=== PATIENT | male | born 1995 | race Caucasian/White ===

== ENCOUNTER 2025-01-23 18:00 | Emergency (ER) | payer OTHER, SELFPAY ==
--- NOTE | ~2025-01-23 | XR_ITS ---
CLINICAL HISTORY: chest pain 2 view chest x-ray Comparison: None Findings: Mild left lower lobe atelectasis. No significant pleural effusion or pneumothorax. Normal size heart. No acute fracture. IMPRESSION: Mild left lower lobe atelectasis. This document has been electronically signed by: Bhavik Ortiz MD on 01/23/2025 23:47:12
--- NOTE | 2025-01-23 18:01 | ECG_ITS ---
Test Reason : CHEST PAIN Blood Pressure : */* mmHG Vent. Rate : 95 BPM Atrial Rate : 95 BPM P-R Int : 144 ms QRS Dur : 92 ms QT Int : 342 ms P-R-T Axes : 43 36 11 degrees QTcB Int : 429 ms Normal sinus rhythm with sinus arrhythmia Normal ECG No previous ECGs available Referred By: Generic ED Physician Electronically Signed By: José Booker
[2025-01-23 18:18] VITALS: BP 156/84; PULSE 91; RESP 18; TEMP 37.3; O2SAT 99; BMI 31.5
[2025-01-23 18:35] LABS: MANUAL DIFF FLAG NO
[2025-01-23 18:36] LABS: Basophils Absolute Auto 0.1 X10*3/uL (0.0-0.2); Basophils Percent Auto 0.5 % (0-2); Eosinophils Absolute Auto 0.1 X10*3/uL (0.0-0.4); Eosinophils Percent Auto 0.6 % (0-4); Hematocrit 41.4 % (42.0-52.0); Hemoglobin 14.8 g/dl (14.0-18.0); Imm Gran Abs Auto 0.03 X10*3/uL (0.00-0.03); Imm Gran Pct Auto 0.3 % (0.0-0.4); Lymphocytes Absolute Auto 2.1 X10*3/uL (1.2-4.9); Lymphocytes Percent Auto 21.2 % (20-40); Mean Corpuscular HGB Conc 35.7 g/dl (31.0-36.0); Mean Corpuscular Volume 81.2 fL (80.0-98.0); Mean Platelet Volume 10.3 fL (9.4-12.4); Monocytes Absolute Auto 0.7 X10*3/uL (0.1-1.2); Monocytes Percent Auto 6.9 % (2-11); Neutrophils Absolute Auto 6.9 x10*3/uL (2.0-8.3); Neutrophils Percent Auto 70.5 % (45-73); Platelet Count 207 X10*3/uL (160-400); Red Cell Distribution Width 12.2 % (11.0-16.0); White Blood Count 9.8 X10*3/uL (4.8-10.8)
[2025-01-23 18:53] LABS: Ethanol < 10 mg/dL
[2025-01-23 18:54] LABS: Alanine Aminotransferase 27 U/L (0-40); Albumin Level 4.6 g/dL (3.5-5.0); Alkaline Phosphatase 48 U/L (39-117); Anion Gap 14 (12-20); Aspartate Amino Transferase 20 U/L (5-37); Bilirubin Total 0.6 mg/dL (0.0-1.0); Blood Urea Nitrogen 15 mg/dL (9-16); Calcium 9.4 mg/dL (8.4-10.2); Carbon Dioxide 24 mmol/L (22-29); Chloride 106 mmol/L (96-108); Creatinine Clr Calc Pharmacy 100.4; Estimated Glomerular Filt Rate > 60; Glucose Random 127 mg/dL (60-115); Potassium 3.6 mmol/L (3.3-5.1); Sodium 140 mmol/L (135-145); Total Protein 8.1 g/dL (6.5-8.0)
[2025-01-23 19:02] LABS: Troponin-I High Sensitivity < 2.7 ng/L (<3.5-35.0)
--- OUTSIDE RECORDS SUMMARY | 2025-01-23 21:35 | XMS_ITS | Data Portability ---
Author Organization [place] - [facility] Address [address] [place] [address] Assessment No assessment recorded. Plan of Treatment Reminders Order Date Submit Date Provider Last Modified By Organization Details Last Modified Time Details Appointments None record ed. Lab None record ed. Referral None record ed. Procedures None record ed. Surgeries None record ed. Imaging None record ed. Medication Orders None record ed. Patient TargetsNo targets recorded. Patient InstructionsNo instructions recorded. Reason for Referral None Reported. Procedures Surgical History Date Name Laterality Status Provider Name and Address Organization Details Recorded Time OC-UDS Send Out Template NON DOT completed [facility] - [facility] 05/17/2023 15:02:21 Imaging Results None recorded. Procedure Notes None recorded. Medical Equipment None Reported. Vitals None Recorded Social History None recorded. Functional Status None recorded. Mental Status None recorded. Family History Nothing Reported. Medical History No medical history recorded. Past Encounters Encounter ID Performer Location Encounter Start Date Encounter Closed Date Diagnosis/Indication Diagnosis SNOMED-CT Code Diagnosis ICD10 Code Diagnosis Note [id number] [address] [place] [address] 07/17/2019 12:23:15 07/17/2019 13:11:59 [id number] [address] [place] [address] 07/20/2021 12:02:52 07/20/2021 14:10:47 [id number] [address] [place] [address] 02/16/2021 16:14:48 02/16/2021 17:46:43 [id number] Elliott Burgos MD [address] [place] [address] 05/17/2023 14:37:21 05/17/2023 15:35:05 History and physical examination, occupation 052418397 Z02.1 Health Concerns Section Related Observation LastModified by Organization Detai ls LastModified Time None Recorded Concern Status LastModified by Organization Details LastModified Time None Recorded Advance Directives Directive None Recorded Payers Encounter Date Sequence Insurance Name Policy Number Policy [place] Covered Member ID Moscoso Member ID Guarantor Name 07/20/2021 1 SANA: DOLORES (PPO) [id number] Bong Montero [id number] Bong Montero 05/17/2023 OC-ESCREEN Bong Montero [id number] Bong Montero
[2025-01-23 21:59] VITALS: BP 155/82; PULSE 77; RESP 16; O2SAT 98
--- NOTE | 2025-01-23 22:34 | PC.NURSE ---
pt change into hospital attire, placed on bed side monitor.
--- NOTE | 2025-01-23 23:25 | ED.GENADULT ---
HPI - General Adult General Chief complaint: Arrhythmia/Palpitations Stated complaint: Chest pain/Palpitations Time Seen by Provider: 01/23/25 23:00 Source: patient Mode of arrival: ambulatory Limitations: no limitations History of Present Illness ED Provider: Dhara HPI narrative: 29yo male with pmhx of alcohol dependence presenting for palpitations and chest pressure. Pt states he has been experiencing intermittent palpitations with associated chest tightness for 1 week. During this time patient has attempted to decrease his alcohol intake. He states that he normally drinks 4 shots a day however he tried to stop drinking last week and the symptoms developed. His last alcoholic beverage was 1 shot earlier in the day today. He would like to quit drinking. He denies recent travel has no history of clots Related Data Previous Rx's ?Medication ?Instructions ?Recorded chlordiazepoxide HCl 25 mg capsule 50 mg (2 x 25 mg) PO BID 3 days 01/24/25 #12 caps Allergies Allergy/AdvReac Type Severity Reaction Status Date / Time No Known Allergies Allergy Verified 01/23/25 18:20 Review of Systems Review of Systems: palpitations, chest tightness Yes all other systems are reviewed and are negative [facility] Past Medical History Attestation statement: The following information was validated with the patient. [facility] Narrative: alcohol dependence Social History Social History Alcohol intake: current Alcohol intake frequency: 3 or more drinks per day Alcohol type: hard liquor Smoked in Last 30 Days: No Use of substances other than those prescribed or required for medical reasons: No Advance Directives: No Advance Directives Information Provided: Yes Do you have a plan to hurt others: No Plan Physical Exam ED Vital Signs: Vital Signs - 24 hr 01/23/25 18:18 01/23/25 21:59 Temperature 99.1 F Pulse Rate 91 77 Respiratory Rate 18 16 Blood Pressure 156/84 H 155/82 H Pulse Oximetry 99 98 Oxygen Delivery Method Room Air Room Air BMI result Body Mass Index 31.5 Well-appearing male in no acute distress A&O x4; no focal neurologic deficits appreciated Lungs clear to auscultation bilaterally ; chest wall stable and nontender to palpation Normal S1-S2 regular rate and rhythm Abdomen is soft nontender nondistended Medications Administered Discontinued Medications Generic Name Dose Route Start Last Admin Trade Name Freq PRN Reason Stop Dose Admin Al Hydroxide/Mg Hydroxide 15 ml 01/23/25 23:26 01/23/25 23:47 Magnesium Hydrox/Alum Hydrox 30 Ml Oral.Susp PO 01/23/25 23:27 15 ml ONCE ONE Administration Chlordiazepoxide HCl 50 mg 01/23/25 23:48 01/23/25 23:53 Chlordiazepoxide Hcl 25 Mg Capsule PO 01/23/25 23:49 50 mg ONCE ONE Administration Famotidine 20 mg 01/23/25 23:26 01/23/25 23:47 Famotidine 20 Mg Tablet PO 01/23/25 23:27 20 mg ONCE ONE Administration Medical Decision Making Medical Decision Making MDM Narrative: 29-year-old male presenting for palpitations - I am concerned for the following; alcohol withdrawal, costochondritis, arrhythmia, acid reflux - low suspicion for ACS, PE; low hrt score and pt percs out and he has stable vitals labs and imaging interpretation - I reviewed the patient's chest x-ray and did not appreciate any large consolidation or pneumothorax; radiology impression read Mild left lower lobe atelectasis - electrolytes within normal limits, normal H&H, no white count, negative troponins x2 - no signs of ischemia patient's EKG - UA clean Patient's workup is unremarkable. I suspect that his symptoms could be secondary to alcohol withdrawal however I am also considering arrhythmia, acid reflux, costochondritis. I have no concern for severe life-threatening pathology. Patient is not experiencing severe withdrawal symptoms. I provided patient with Librium here in the emergency department and a script was sent to his pharmacy. I also provided him with outpatient detox resources. I gave him instructions to follow up with his PCP and return precautions. Lab Data 01/23/25 18:30 01/23/25 18:30 Labs: Lab Results 01/23/25 01/23/25 01/23/25 Range/Units 18:30 23:15 23:19 WBC 9.8 (4.8-10.8) X10*3/uL RBC 5.10 (4.60-5.80) X10*6/uL Hgb 14.8 (14.0-18.0) g/dl Hct 41.4 L (42.0-52.0) % MCV 81.2 (80.0-98.0) fL MCH 29.0 (27.0-33.0) pg MCHC 35.7 (31.0-36.0) g/dl RDW 12.2 (11.0-16.0) % Plt Count 207 (160-400) X10*3/uL MPV 10.3 (9.4-12.4) fL Immature Gran % (Auto) 0.3 (0.0-0.4) % Neut % (Auto) 70.5 (45-73) % Lymph % (Auto) 21.2 (20-40) % Posey % (Auto) 6.9 (2-11) % Eos % (Auto) 0.6 (0-4) % Baso % (Auto) 0.5 (0-2) % Lymph # (Auto) 2.1 (1.2-4.9) X10*3/uL Posey # (Auto) 0.7 (0.1-1.2) X10*3/uL Eos # (Auto) 0.1 (0.0-0.4) X10*3/uL Baso # (Auto) 0.1 (0.0-0.2) X10*3/uL Abs Immat Gran (auto) 0.03 (0.00-0.03) X10*3/uL Absolute Neuts (auto) 6.9 (2.0-8.3) x10*3/uL Absolute Nucleated RBC 0.000 (0.0-0.012) X10*3/uL Nucleated RBC % (auto) 0.0 (0.0-0.2) /100WBC Sodium 140 (135-145) mmol/L Potassium 3.6 (3.3-5.1) mmol/L Chloride 106 (96-108) mmol/L Carbon Dioxide 24 (22-29) mmol/L Anion Gap 14 (12-20) BUN 15 (9-16) mg/dL Creatinine 1.11 (0.5-1.4) mg/dL Estim Creat Clear Calc 100.4 Estimated GFR > 60 Random Glucose 127 H (60-115) mg/dL Calcium 9.4 (8.4-10.2) mg/dL Magnesium 2.0 (1.6-2.6) mg/dL Total Bilirubin 0.6 (0.0-1.0) mg/dL AST 20 (5-37) U/L ALT 27 (0-40) U/L Alkaline Phosphatase 48 (39-117) U/L Troponin I High Sens < 2.7 < 2.7 (<3.5-35.0) ng/L Total Protein 8.1 H (6.5-8.0) g/dL Albumin 4.6 (3.5-5.0) g/dL TSH 3.11 (0.32-4.0) uIU/mL Urine Color Yellow Urine Appearance Clear Urine pH 6.5 (5.0-9.0) Ur Specific [place] <= 1.005 (1.005-1.025) Urine Protein Negative (Neg-Trace) mg/dL Urine Glucose (UA) Negative (Negative) mg/dL Urine Ketones Negative (Negative) mg/dL Urine Blood Negative (Negative) Urine Nitrite Negative (Negative) Ur Leukocyte Esterase Negative (Negative) Urine RBC 0-2 (0-2) /HPF Urine WBC 0-5 (0-5) /HPF Ur Squamous Epith Cells 0-2 (0-2) /HPF Urine Bacteria None Seen (None Seen) Hyaline Casts 0-2 (0-2) /LPF Ethyl Alcohol < 10 mg/dL Influenza Type A (PCR) NEGATIVE (Negative) Influenza Type B (PCR) NEGATIVE (Negative) RSV RNA Qual (PCR) NEGATIVE (Negative) SARS-CoV-2 RNA (RT-PCR) NEGATIVE (Negative) Discharge Plan Discharge Clinical Impression: Palpitations Patient Disposition: Home, Self-Care Instructions: Abuse of Alcohol (DC) Additional Instructions: please cloth picker your new medication take as instructed please follow up with the primary care provider in the next 24-48 hours for reassessment please refer to the additional resources you were given for detox for help outpatient Prescriptions: New chlordiazepoxide HCl 25 mg capsule 50 mg PO BID 3 Days Qty: 12 0RF Print Language: Kyrgyz
[2025-01-23 23:26] LABS: Appearance Urine Clear; Color Urine Yellow; Glucose Urine UA Negative (Negative); Leukocyte Esterase Urine Negative (Negative); Nitrite Urine Negative (Negative); PH 6.5 (5.0-9.0); Specific Gravity - Urine <= 1.005 (1.005-1.025); Urine Blood Negative (Negative); Urine Ketones Negative (Negative); Urine Protein Negative (Neg-Trace)
[2025-01-23 23:28] LABS: Bacteria Urine None Seen (None Seen); Hyaline Casts Urine 0-2 /LPF (0-2); RBC Urine 0-2 /HPF (0-2); Squamous Epithelial Cell Urine 0-2 /HPF (0-2); WBC Urine 0-5 /HPF (0-5)
[2025-01-23 23:47] LABS: Troponin-I High Sensitivity < 2.7 ng/L (<3.5-35.0)
[2025-01-23] MEDS: Famotidine 20 MG TABLET PO (23:47)
[2025-01-23] MEDS: Magnesium Hydrox/Alum Hydrox 30 ML ORAL.SUSP 15 ML PO (23:47)
[2025-01-23] MEDS: chlordiazePOXIDE HCl 25 MG CAPSULE 50 MG PO (23:53)
[2025-01-23 23:55] LABS: Thyroid Stimulating Hormone 3.11 uIU/mL (0.32-4.0)
[2025-01-24 00:02] LABS: Influenza A PCR NEGATIVE (Negative); Influenza B PCR NEGATIVE (Negative); Resp Syncy Virus RNA Qual PCR NEGATIVE (Negative); SARS COV2 PCR INHOUSE NEGATIVE (Negative)
[2025-01-24 01:43] VITALS: BP 146/76; PULSE 72; RESP 16; TEMP 36.7; O2SAT 98
== END 2025-01-24 01:44 | disposition home or self-care (01) ==
PROVIDERS: Registered Nurse Emergency; Emergency Provider Student in an Organized Health Care Education/Training Program
DX: R07.89 Other chest pain (principal); R00.2 Palpitations; Z51.81 Encounter for therapeutic drug level monitoring; Z79.899 Other long term (current) drug therapy; Z03.818 Encounter for observation for suspected exposure to other biological agents ruled out
CPT/HCPCS: 0241U; 36415; 71046; 80053; 80307; 81001; 83735; 84443; 84484; 85025; 93005; 99283; 99285

== ENCOUNTER → 2025-01-23 18:01 | Outpatient (BNV) | payer OTHER, SELFPAY | PROVIDERS: Emergency Provider Student in an Organized Health Care Education/Training Program; Visit Provider Internal Medicine Cardiovascular Disease | DX: R07.9 Chest pain, unspecified (principal) | CPT/HCPCS: 93010 ==

== ENCOUNTER → 2025-01-23 23:01 | Outpatient (BNV) | payer OTHER, SELFPAY | PROVIDERS: Emergency Provider Student in an Organized Health Care Education/Training Program; Visit Provider Radiology Diagnostic Radiology | DX: J98.11 Atelectasis (principal) | CPT/HCPCS: 71046 ==

== ENCOUNTER 2025-09-12 17:44 | Emergency (ER) | payer SELFPAY ==
--- OUTSIDE RECORDS SUMMARY | 2025-09-10 16:05 | XMS_ITS | Encounter Summary ---
Author Organization [facility] Address [address] [place] [address] Care Team Providers Care Lumber Scaler Name Role Phone Pcp, No Primary Care Provider Unavailabl e Reason for Referral * Psychiatric (Routine) - Pending Review Specialty Diagnoses / Procedures Referred By Calvin t Referred To Contact Psychiatry, General Diagnoses Panic attacks Eden Brown APRN [address] [place] [address] Phone: tel: fax: Referral ID Status Reason Start Date Expiration Date Visits Requested Visits Authorized [id number] Pending Review Consult 09/10/2025 09/11/2026 1 1 Reason for Visit * Reason Comments Shortness of Breath Pt is having shortne ss of breath with tightness in the chest, pt stated he feels panic, he had anxiety back in the [place]. He was seen at the at the ER. Encounter Details Date Type Department Care Team (Late st Contact Info) Description 09/10/2025 4:05 PM EDT Office Visit [facility] [address] [phone] Jani Sepulveda MD [address] [place] [address] Eden Brown APRN [address] [place] [address] Chest tightness (Primary Dx); Panic attacks; Palpitations Social History Tobacco Use Types Packs/Day Years Used Date Smoking Tobacco: Never Assessed Sex and Gender Information Value Date Recorded Sex Assigned at Not on file Legal Sex Male 4:03 PM EDT Gender Identity Not on file Sexual Orientation Not on file documented as of this encounter Last Filed Vital Signs Vital Sign Reading Time Taken Comments Blood Pressure 149/86 09/10/2025 4:13 PM EDT Pulse 95 09/10/2025 4:13 PM EDT Temperature 37.1 C (98.7 F) 09/10/2025 4:13 PM EDT Respiratory Rate - - Oxygen Saturation 98% 09/10/2025 4:13 PM EDT Inhaled Oxygen Concentration - - Weight 86.2 kg (190 lb) 09/10/2025 4:13 PM EDT Height 170.2 cm (5' 7 ) 09/10/2025 4:13 PM EDT Body Mass Index 29.76 09/10/2025 4:13 PM EDT documented in this encounter Progress Notes * Eden Osman Signs, SATELLITE TELEVISION INSTALLER - 09/10/2025 4:16 PM EDT Assessment & Plan Bong was seen today for shortness of breath. Diagnoses and all orders for this visit: Chest tightness - ECG 12 lead - TSH REFLEX FREE T4 - Vitamin B12 Panic attacks - Vitamin B12 - Amb referral to Psychiatry Palpitations - ECG 12 lead - TSH REFLEX FREE T4 - Vitamin B12 Medical Decision Making and Data Synthesis: ECG 12 lead independently interpreted by me - sinus rhythm with sinus arrhythmia at 73 bpm. 29 y.o. male who presents with intermittent sensations of chest tightness, shortness of breath, palpitations, and panic attacks for the last couple weeks. I considered atrial fibrillation, and other cardiac arrhythmias, however his ECG demonstrates sinus rhythm with a sinus arrhythmia at 73 bpm. There are no significant changes from his previous ECG. I considered electrolyte derangement, and anemia, however less likely given he had a CBC and CMP performed last week which were normal. Thyroid dysfunction and B12 deficiency remain differentials, I provided lab order for TSH and B12 to be checked. I advised he keep his follow-up appointment with primary care in September; we discussed that it may be worth calling to see if he can get a sooner appointment given his symptoms. Anxiety/panic attack remains another differential given he feels symptoms are consistent with prior panic attacks. Given he has never had a formal evaluation by a psychiatric provider, I referred him today. Patient understands he can return to urgent care or go to emergency department in the meantime if symptoms persist or worsen. Patient to follow-up with PCP. Patient verbalizes understanding and agreement with plan of care at this time. Patient discharged in stable condition. Communication barriers and lifestyle preferences were addressed with the patient and/or family . The care plan including medications and self-management goals were reviewed to the best of the Patientand/or family's ability. All questions and concerns were answered. Patient and/or family verbalizedunderstanding of the plan of care. Subjective Chief Complaint: Chest tightness, SOB, panic attacks History of Present Illness: Provided By: Self Limitations: None Interpretor: None Bong Montero is a 29 y.o. male who presents with intermittent sensations of chest tightness, shortness of breath, palpitations for the last couple weeks. He reports a history of panic attacks. He reports that in December he stopped drinking alcohol, and this is when he first started developing panic attacks. They resolved spontaneously, and he never required any medications or evaluation by psychiatrist. A couple months ago he started drinking again, socially a couple drinks on some occasions.The last couple weeks he has noticed his panic attacks have returned. He typically drinks 2 caffeinated beverages daily. Since he first started having the panic attacks again, he cut back his intake and is trying to have only 1 caffeinated beverage a day. He typically has 1 coffee and 1 green tea daily. He went to [facility] emergency department last Wednesday for similar symptoms. He had an ECG done intriage, which they advised him showed sinus rhythm with sinus arrhythmia. He also had a chest x-raydone, which was normal. He had a CBC and BMP done, which he is able to show me on his phone. The labs were normal. He was waiting in the waiting room for several hours, and his symptoms resolved. Ther efore he left without full evaluation. He has an appointment with his primary care provider in September. He denies drug use, or smoking. He reports he tries to eat a healthy diet and he is physically active. Review of Systems Constitutional: Negative for chills, fatigue and fever. HENT: Negative for congestion. Respiratory: Positive for chest tightness. Negative for cough, shortness of breath and wheezing. Cardiovascular: Positive for palpitations. Negative for chest pain and leg swelling. Gastrointestinal: Negative for diarrhea, nausea and vomiting. Musculoskeletal: Negative for arthralgias and myalgias. Neurological: Positive for dizziness. Negative for tremors, seizures, syncope, facial asymmetry, speech difficulty, weakness, light-headedness and numbness. Psychiatric/Behavioral: Negative for confusion and decreased concentration. The patient is nervous/anxious. All other systems reviewed and are negative. History reviewed. No pertinent past medical history. History reviewed. No pertinent surgical history. Social History[1] History reviewed. No pertinent family history. Objective Vitals: 09/10/25 1613 BP: (!) 149/86 Pulse: 95 Temp: 98.7 ??F (37.1 ??C) SpO2: 98% Weight: 86.2 kg (190 lb) Height: 1.702 m (5' 7 ) Physical Exam Vitals reviewed. Constitutional: General: He is not in acute distress. Appearance: He is not ill-appearing, toxic-appearing or diaphoretic. HENT: Head: Normocephalic and atraumatic. Cardiovascular: Rate and Rhythm: Normal rate. Heart sounds: No murmur heard. Pulmonary: Effort: Pulmonary effort is normal. No accessory muscle usage or prolonged expiration. Breath sounds: Normal air entry. No decreased air movement or transmitted upper airway sounds. No wheezing or rhonchi. Skin: Coloration: Skin is not jaundiced or pale. Neurological: General: No focal deficit present. Mental Status: He is alert and oriented to person, place, and time. Mental status is at baseline. Cranial Nerves: No dysarthria or facial asymmetry. Motor: Motor function is intact. Psychiatric: Attention and Perception: Attention and perception normal. Mood and Affect: Affect normal. Mood is anxious. Speech: Speech normal. Behavior: Behavior normal. Behavior is cooperative. Thought Content: Thought content normal. Thought content is not paranoid or delusional. Thought content does not include homicidal or suicidal ideation. Cognition and Memory: Cognition normal. Judgment: Judgment normal. Eden Brown APRN 09/10/25 8:24 PM [1] documented in this encounter Plan of Treatment Scheduled Orders Name Type Priority Associated Diagnoses Orde r Schedule TSH REFLEX FREE T4 Lab Routine Chest tightness Palpitations Ordered: 09/10/2025 Vitamin B12 Lab Routine Chest tightness Panic attacks Palpitations Ordered: 09/10/2025 Scheduled Referrals Name Type Priority Associated Diagnoses Order Schedule Amb referral to Psychiatry Outpatient Referral Routine Panic attacks Ordered: 09/10/2025 documented as of this encounter Procedures Procedure Name Priority Date/Time Associated Diagnosis Comments ECG 12-LEAD Routine 09/10/2025 4:36 PM EDT Chest tightness Palpitations documented in this encounter Results * ECG 12 lead (09/10/2025 4:36 PM EDT) 09/10/2025 4:36 PM EDT us Eden Osman Signs SATELLITE TELEVISION INSTALLER ECG ORDERABLES Final Resu lt documented in this encounter Visit Diagnoses Diagnosis Chest tightness- Primary Other chest pain Panic attacks Panic disorder without agoraphobia Palpitations documented in this encounter Care Teams Lumber Scaler Relationship Specialty Start Date End Date Pcp, No PCP - General General Medicine 09/10/25 documented as of this encounter
--- NOTE | 2025-09-12 17:47 | ECG_ITS ---
Test Reason : cp Blood Pressure : */* mmHG Vent. Rate : 98 BPM Atrial Rate : 98 BPM P-R Int : 148 ms QRS Dur : 86 ms QT Int : 324 ms P-R-T Axes : 65 68 39 degrees QTcB Int : 413 ms Normal sinus rhythm Normal ECG When compared with ECG of 23-Jan-2025 18:03, No significant change was found Referred By: Generic ED Physician Electronically Signed By: José Booker
[2025-09-12 17:57] VITALS: BP 136/78; PULSE 98; RESP 18; TEMP 36.4; O2SAT 99; BMI 27.6
--- NOTE | 2025-09-12 17:59 | ED_ITS ---
HPI - Chest Pain General Chief Complaint: General Medical Stated Complaint: chest pain, high blood pressure Time Seen by Provider: 09/12/25 21:35 Source: patient Mode of arrival: ambulatory Limitations: no limitations History of Present Illness ED Provider: Efra FONTANA HPI narrative: The patient is a 29-year-old male presenting to the ED for evaluation of multiple vague symptoms. Patient reports since Wednesday of last week he has been experiencing waxing and waning chest pressure, headache, left facial tingling, left arm paresthesias, fatigue, palpitations, and generalized unwell feeling. The patient reports symptoms 1st began 7 days ago when driving home from work, not with exertion, at which time he presented to [facility] ED, was evaluated, and discharged home. The patient reports feeling not great, but not particularly unwell until this past Wednesday, again when driving home from work. The patient was able to make it home, however later that evening felt recurrent escalating symptoms, at which time he reports checking his blood pressure and found it elevated around 160/90. The patient reports he attempted to fall asleep, however after 1 hour of sleeping he woke suddenly with mild panic and increased symptoms, blood pressure was once again elevated and he returned to the [facility] Emergency Department for re-evaluation, reports re-evaluation was unremarkable and he was discharged home. Patient reports he returned to work today and upon returning home began reexperiencing symptoms. Patient presents a journal of his blood pressure which shows he is taking his blood pressure between 6-8 times daily, majority of blood pressures are normal with intermittently high systolics. 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 The patient admits he does not follow a very good diet, eats fast food on a regular basis. The patient also reports he was previously drinking approximately 4 alcoholic drinks 2-4 nights a week, however stopped drinking altogether 10 days ago as he no longer wants to drink alcohol. Related Data Previous Rx's ?Medication ?Instructions ?Recorded chlordiazepoxide HCl 25 mg capsule 50 mg (2 x 25 mg) P O BID 3 days 01/24/25 #12 caps Allergies Allergy/AdvReac Type Severity Reaction Status Date / Time No Known Allergies Allergy Verified 09/12/25 17:59 Review of Systems 2 Review of Systems: Yes all other systems are reviewed and are negative [facility] Social History Social History Alcohol intake: current Alcohol intake frequency: 0-2 drinks per day Alcohol type: hard liquor Smoked in Last 30 Days: No Use of substances other than those prescribed or required for medical reasons: No Advance Directives: No Advance Directives Information Provided: Yes Physical Exam 2 Vital Signs: Vital Signs: Last Vital Signs Temp 97.6 F 09/12/25 17:57 Pulse 72 09/12/25 21:33 Resp 16 09/12/25 21:33 BP 127/77 09/12/25 21:33 Pulse Ox 98 09/12/25 21:33 O2 Del Method Room Air 09/12/25 21:33 BMI result Body Mass Index 27.6 CONSTITUTIONAL: The patient appears non-toxic, well nourished and in no acute distress. Vital signs as documented. HEAD: Atraumatic, normocephalic. EYES: EOMs grossly intact, pupils equal, conjunctiva clear, no exudate. ENT: Nares patent, no discharge. Airway patent, no audible stridor, visible mucosa is pink and moist without noted lesions. NECK: Trachea is midline, no obvious masses or gross abnormalities. CHEST: Symmetric movement, normal appearance. LUNGS: LS present and CTAB, no w/r/r. Non-labored work of breathing. CARDIAC: Regular Rhythm, S1/S2 appreciated, no murmurs, rubs or gallops. ABDOMEN: Abdomen soft and non-tender x4 quadrants, no palpable masses or organomegaly. : Deferred. EXTREMITIES: Normal tone, moves all extremities spontaneously without reported pain. No obvious acute injury or deformity noted. NEURO: Alert and oriented x3, CN II-XII appear grossly intact. Cerebellar Functioning grossly intact. No obvious sensory or motor deficits. Speech clear and appropriate. PSYCH: normal affect, appropriate eye contact, fluid speech, with appropriate response to questioning. No reported suicidality or homicidality. SKIN: Warm, dry, color appropriate, normal turgor. No rashes noted. NIH Stroke Scale Level of Consciousness: Alert Level of Consciousness Questions: Answers both questions correctly Level of Consciousness Commands: Performs both tasks correctly Best Gaze: Normal Visual: No visual loss Facial Palsy: Normal Motor Arm (Right): No drift Motor Arm (Left): No drift Motor Leg (Right): No drift Motor Leg (Left): No drift Limb Ataxia: Absent Sensory: Normal Best Language: No aphasia Dysarthia: Normal Extinction and Inattention: No abnormality Score: 0 Course Course Course Narrative: This is a Rapid Medical Examination (RME) performed by Brittany Tijerina PA-C in triage. Full HPI, ROS, assessment and treatment plan per primary provider in the Main ED. Hx: 29 yo M here for eval of chest pain x today. assoc headache, tingling to L sided of face and warm sensation to L arm. states he has been evaluated for same 3-4 times this month for same ([facility]). no hx HTN - notes elevated BP readings recently - BP today 177/96. states I can't live like this Plan: labs, ekg Medical Decision Making Medical Decision Making MDM Narrative: 10:19 PM 09/12/2025 (Brittany FONTANA): The patient is a 29-year-old male presenting to the ED for evaluation of multiple vague symptoms. Patient reports since Wednesday of last week he has been experiencing waxing and waning chest pressure, headache, left facial tingling, left arm paresthesias, fatigue, palpitations, and generalized unwell feeling. The patient reports symptoms 1st began 7 days ago when driving home from work, not with exertion, at which time he presented to [facility] ED, was evaluated, and discharged home. The patient reports feeling not great, but not particularly unwell until this past Wednesday, again when driving home from work. The patient was able to make it home, however later that evening felt recurrent escalating symptoms, at which time he reports checking his blood pressure and found it elevated around 160/90. The patient reports he attempted to fall asleep, however after 1 hour of sleeping he woke suddenly with mild panic and increased symptoms, blood pressure was once again elevated and he returned to the [facility] Emergency Department for re- evaluation, reports re-evaluation was unremarkable and he was discharged home. Patient reports he returned to work today and upon returning home began reexperiencing symptoms. Patient presents a journal of his blood pressure which shows he is taking his blood pressure between 6-8 times daily, majority of blood pressures are normal with intermittently high systolics. 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 The patient admits he does not follow a very good diet, eats fast food on a regular basis. The patient also reports he was previously drinking approximately 4 alcoholic drinks 2-4 nights a week, however stopped drinking altogether 10 days ago as he no longer wants to drink alcohol. The patient in the ED is well-appearing, in no acute distress, vital signs are reassuring, no hypertension, tachycardia, tachypnea, fever, or hypoxia. Exam is unremarkable. The patient's EKG is nonischemic, laboratory evaluation shows no leukocytosis, anemia, electrolyte abnormality, or ELLIOTT. Patient's LFTs are unremarkable, troponin is negative, lipase is normal. The patient's chart review reveals patient was seen here in December for a similar presentation of symptoms, at that time the patient had also attempted to stop drinking alcohol. Patient's presentation is concerning for possible somatization of stress, possibly exacerbated by recent discontinuation of alcohol, and possibly compounded by undiagnosed sleep apnea. The patient's exam is not concerning for alcohol withdrawal at this time. Patient was educated extensively on possible causes for his symptoms and correlation of his stress regarding those symptoms with his blood pressure. Patient was recommended to not restart his alcohol consumption, and to make attempts to improve his diet, specifically with less sodium intake. Patient was recommended to follow up with his new PCP with whom he is scheduled in September, recommended to request a sleep study and consider referral to a cognitive behavioral therapist. Patient was educated on appropriate blood pressure monitoring and reasons to return to the emergency department. Patient states feeling reassured following workup and education. The patient states his intent to follow up with PCP as recommended. Admission/Observation Consideration of admission/observation: Escalation of care including admission/observation considered Lab Data MDM Lab Attestation statement: I reviewed the patient's lab results. 09/12/25 18:11 09/12/25 18:11 Labs: Lab Results 09/12/25 Range/Units 18:11 WBC 7.5 (4.8-10.8) X10*3/uL RBC 5.46 (4.60-5.80) X10*6/uL Hgb 15.2 (14.0-18.0) g/dl Hct 45.1 (42.0-52.0) % MCV 82.6 (80.0-98.0) fL MCH 27.8 (27.0-33.0) pg MCHC 33.7 (31.0-36.0) g/dl RDW 12.2 (11.0-16.0) % Plt Count 225 (160-400) X10*3/uL MPV 10.5 (9.4-12.4) fL Immature Gran % (Auto) 0.4 (0.0-0.4) % Neut % (Auto) 67.0 (45-73) % Lymph % (Auto) 24.5 (20-40) % [place] % (Auto) 6.9 (2-11) % Eos % (Auto) 0.5 (0-4) % Baso % (Auto) 0.7 (0-2) % Lymph # (Auto) 1.8 (1.2-4.9) X10*3/uL [place] # (Auto) 0.5 (0.1-1.2) X10*3/uL Eos # (Auto) 0.0 (0.0-0.4) X10*3/uL Baso # (Auto) 0.1 (0.0-0.2) X10*3/uL Abs Immat Gran (auto) 0.03 (0.00-0.03) X10*3/uL Absolute Neuts (auto) 5.0 (2.0-8.3) x10*3/uL Absolute Nucleated RBC 0.000 (0.0-0.012) X10*3/uL Nucleated RBC % (auto) 0.0 (0.0-0.2) /100WBC Sodium 138 (135-145) mmol/L Potassium 3.7 (3.3-5.1) mmol/L Chloride 108 (96-108) mmol/L Carbon Dioxide 22 (22-29) mmol/L Anion Gap 12 (12-20) BUN 14 (9-16) mg/dL Creatinine 1.08 (0.5-1.4) mg/dL Estim Creat Clear Calc 100.3 Estimated GFR > 60 Random Glucose 105 (60-115) mg/dL Calcium 9.7 (8.4-10.2) mg/dL Magnesium 1.9 (1.6-2.6) mg/dL Total Bilirubin 0.8 (0.0-1.0) mg/dL AST 19 (5-37) U/L ALT 19 (0-40) U/L Alkaline Phosphatase 42 (39-117) U/L Troponin I High Sens < 2.7 (<3.5-35.0) ng/L Total Protein 7.7 (6.5-8.0) g/dL Albumin 5.1 H (3.5-5.0) g/dL Lipase 18 (8-78) U/L Ethyl Alcohol < 10 mg/dL Independent Interpretation I performed an independent interpretation of an: EKG (EKG shows sinus rhythm with a rate of 98, no evidence of acute ischemia, no ST elevation, no ectopy. QTC 413, compared to previous on 01/23/2025 there are no significant morphology changes.) External Record Review External record reviewed: Outpatient record and Prior outpatient labs Tests considered The following testing was considered but not selected: CXR Discharge Plan Discharge Clinical Impression: Anxiety with somatization Patient Disposition: Home, Self-Care Instructions: Stress (ED), Generalized Anxiety Disorder (ED), Cognitive Behavioral Therapy (ED) Additional Instructions: Thank you for choosing [facility]'s Emergency Department for your care today. Thankfully your laboratory evaluation, EKG, vital signs, and exam today are all reassuring. Your workup reveals no evidence of an acute cardiac, infectious, anemic, renal (kidneys), metabolic, liver, or pancreatic cause for your symptoms. There was no evidence of any damage to your heart, kidneys, or other organs. At this time there is no indication for admission to the hospital or continued ED observation, and it is safe to discharge you home. The exact cause of your symptoms is not entirely clear, however based on your presentation of symptoms, and reassuring workup, it is possible that your symptoms are either the result of undiagnosed sleep apnea, or possibly are an expression of your body's response to chronically increased levels of stress. Please contact the primary care provider with wom you are scheduled to see in September, and ask if it is possible to be ordered for a sleep study prior to your 1st appointment, to identify if obstructive sleep apnea is contributing to your fatigue, chest pain, and other symptoms. If your sleep study is unremarkable, it is highly recommended that you begin speaking with a licensed therapist to discuss your symptoms and how your stress may be contributing to those symptoms. As we discussed, your blood pressure in the emergency department today is not emergently concerning, and does not require emergent lowering. Given the variation in your blood pressures at home, your occasionally elevated blood pressures are more likely a result of your concern/stress regarding your symptoms, and less likely the primary cause of your symptoms. Please avoid over checking your blood pressure as this itself can lead to increased blood pressure. Should you experience concerning symptoms for greater than 1-2 hours, you may check your blood pressure, however you only need to seek emergency department evaluation if your blood pressure if it is greater than 200/110 and your experiencing associated chest pain or headache. Otherwise you should continue keeping a journal of your blood pressures, and show the journal to your primary care provider at you next appointment, to determine if there is any indication for anti-hypertension medications. Please follow up with your primary care physician for re-evaluation, additional management of your symptoms, and continued preventative care. If you do not have a primary care physician, please call the [facility] at [phone] to establish a new primary care physician. While waiting to establish your new primary care physician, you can call our Walk-in Care [facility] at [phone] for non-emergency needs. Please return to the emergency department if you develop a severe or sudden change in your symptoms, a fever over 100.4 that does not improve with Tylenol or Ibuprofen, recurrent vomiting, or any other new or worsening symptoms or concerns. Prescriptions: No Action chlordiazepoxide HCl 25 mg capsule 50 mg PO BID 3 Days Qty: 12 0RF Print Language: Nigerian
[2025-09-12 18:15] LABS: MANUAL DIFF FLAG NO
[2025-09-12 18:32] LABS: Alanine Aminotransferase 19 U/L (0-40); Albumin Level 5.1 g/dL (3.5-5.0); Alkaline Phosphatase 42 U/L (39-117); Anion Gap 12 (12-20); Aspartate Amino Transferase 19 U/L (5-37); Blood Urea Nitrogen 14 mg/dL (9-16); Calcium 9.7 mg/dL (8.4-10.2); Carbon Dioxide 22 mmol/L (22-29); Chloride 108 mmol/L (96-108); Creatinine Clr Calc Pharmacy 100.3; Estimated Glomerular Filt Rate > 60; Hematocrit 45.1 % (42.0-52.0); Hemoglobin 15.2 g/dl (14.0-18.0); Imm Gran Abs Auto 0.03 X10*3/uL (0.00-0.03); Imm Gran Pct Auto 0.4 % (0.0-0.4); Lipase 18 U/L (8-78); Lymphocytes Absolute Auto 1.8 X10*3/uL (1.2-4.9); Magnesium 1.9 mg/dL (1.6-2.6); Mean Corpuscular HGB Conc 33.7 g/dl (31.0-36.0); Mean Corpuscular Hemoglobin 27.8 pg (27.0-33.0); Mean Corpuscular Volume 82.6 fL (80.0-98.0); NRBC Abs Auto 0.000 X10*3/uL (0.0-0.012); NRBC Pct Auto 0.0 /100WBC (0.0-0.2); Platelet Count 225 X10*3/uL (160-400); Potassium 3.7 mmol/L (3.3-5.1); Red Blood Count 5.46 X10*6/uL (4.60-5.80); Sodium 138 mmol/L (135-145); Total Protein 7.7 g/dL (6.5-8.0); White Blood Count 7.5 X10*3/uL (4.8-10.8)
[2025-09-12 19:25] LABS: Troponin-I High Sensitivity < 2.7 ng/L (<3.5-35.0)
--- OUTSIDE RECORDS SUMMARY | 2025-09-12 21:26 | XMS_ITS | Data Portability ---
Author Organization [place] - [facility] Address [address] [place] [address] Assessment No assessment recorded. Plan of Treatment [...] Name and Address Organization Details Recorded Time 3 OC-UDS Send Out Template NON DOT completed TRI KRISTINA [place] - [facility] 05/17/2023 15:02:21 Imaging Results None recorded. Procedure Notes None recorded. Medical Equipment None Reported. Vitals None Recorded Social History None recorded. Functional Status None recorded. Mental Status None recorded. Family History Nothing Reported. Medical History No medical history recorded. Past Encounters Encounter ID Performer Location Encounter Start Date Encounter Closed Date Diagnosis/Indication Diagnosis SNOMED-CT Code Diagnosis ICD10 Code Diagnosis IMO Codes Diagnosis Note [id number] [facility] [place] [address] 07/17/2019 12:23:15 07/17/2019 13:11:59 [id number] [address] [place] [address] 07/20/2021 12:02:52 07/20/2021 14:10:47 [id number] [address] [facility] JESU Garay [address] 02/16/2021 16:14:48 02/16/2021 17:46:43 [id number] Elliott Burgos MD [address] [place] [address] 05/17/2023 14:37:21 05/17/2023 15:35:05 History and physical examination, occupation 302723017 Z02.1 Health Concerns Section Related Observation LastModified by Organization Detai ls LastModified Time None Recorded Concern Status LastModified by Organization Details LastModified Time None Recorded Advance Directives Directive None Recorded Payers Insurance Date Sequence Insurance Name Policy Number Policy [place] Covered Member ID [place] Member ID Guarantor Name 05/17/2023 1 SANA (PPO) [id number] Bong Montero [id number] Bong Montero 05/17/2023 OC-ESCREEN Bong Montero [id number] ZARI [id number] Bong Montero
--- OUTSIDE RECORDS SUMMARY | 2025-09-12 21:26 | XMS_ITS | Encounter Summary ---
Author Organization [facility] Address [address] [place] [address] Care Team Providers Care Social Services Coordinator Name Role Phone Pcp, No Primary Care Provider Unavailabl e Encounter Details Date Type Department Care Team (Latest Contact Info) Description 09/10/2025 Travel Social History Tobacco Use Types Packs/Day Years Used Date Smoking Tobacco: Never Assessed Sex and Gender Information Value Date Recorded Sex Assigned at Not on file Legal Sex Male 4:03 PM EDT Gender Identity Not on file Sexual Orientation Not on file documented as of this encounter Plan of Treatment Not on file documented as of this encounter Visit Diagnoses Not on filedocumented in this encounter Care Teams Social Services Coordinator Relationship Specialty Start Date End Date Pcp, No PCP - General General Medicine 09/10/25 documented as of this encounter
--- OUTSIDE RECORDS SUMMARY | 2025-09-12 21:26 | XMS_ITS ---
Author Name [facility] Organization Unknown Problems Problem Status Onset Date Problem Type Date of Resoluti on Source Panic attacks active EncounterDiagnosisAct HHCCT Palpitations active EncounterDiagnosisAct HHCCT Chest tightness active EncounterDiagnosisAct HHCCT Encounters Encounter Type Encounter Reason Primary Diagnosis Location Date Ambulatory Shortness of Breath Shortness of Breath H stickK 09/10/2025 Care Team Organization Name Specialty Phone Email Start Date End Da te [facility] PCP Curriculum Development Manager 09/10/2025 [facility] 09/10/2025 [facility] NO PCP Primary Care 09/10/2025
--- OUTSIDE RECORDS SUMMARY | 2025-09-12 21:26 | XMS_ITS | Clinical Summary ---
Author Organization [facility] Address [address] [place] [address] Care Team Providers Care Residential Roofer Helper Name Role Phone Pcp, No Primary Care Provider Unavailabl e Allergies No known active allergies Medications No known medications Active Problems No known active problems Encounters Date Type Department Care Team Description 09/10/2025 4:05 PM EDT Office Visit [facility] [address] [place] [address] [place] [address] Jani Sepulveda MD Signs, Eden Osman APRN Chest tightness (Primary Dx); Panic attacks; Palpitations 09/10/2025 Travel from Last 3 Months Social History Tobacco Use Types Packs/Day Years Used Date Smoking Tobacco: Never Assessed Sex and Gender Information Value Date Recorded Sex Assigned at Not on file Legal Sex Male 4:03 PM EDT Gender Identity Not on file Sexual Orientation Not on file Last Filed Vital Signs Vital Sign Reading [...] Mass Index 29.76 09/10/2025 4:13 PM EDT Plan of Treatment Health Maintenance Due Date Last Done Comments Hepatitis C Virus Screening 1993 HIV Screening 2006 DTaP/Tdap/Td Vaccines (1 - Tdap) 2012 Hepatitis B Vaccines (1 of 3 - 19+ 3-dose series) 2012 Influenza Vaccine 06/29/2025 COVID-19 Vaccine ( - 2023-2 5 season) 2025 HPV Vaccines (No Doses Required) Completed Pneumococcal Vaccine: Pediat maynor (0-5 Years) and At-Risk Patients (6 to 49 Years) Aged Out No longer eligible b ased on patient's age to complete this topic Procedures Procedure Name Priority Date/Time Associated Diagnosis Comments ECG 12-LEAD Routine 09/10/2025 4:36 PM EDT Chest tightness Palpitations from Last 3 Months Results * ECG 12 lead (09/10/2025 4:36 PM EDT) 09/10/2025 4:36 PM EDT us Eden Osman Signs END FRAZER ECG ORDERABLES Final Resu lt from Last 3 Months Care Teams Residential Roofer Helper Relationship Specialty Start Date End Date Pcp, No PCP - General General Medicine 09/10/25
[2025-09-12 21:33] VITALS: BP 127/77; PULSE 72; RESP 16; O2SAT 98
--- NOTE | 2025-09-12 21:35 | PC.NURSE ---
pt A+Ox4, placed on pacs administrator, HR and BP stable at 78 BPM and 127/77, IV line placed to right AC, call light given for safety
[2025-09-12 23:06] VITALS: BP 135/80; PULSE 70; RESP 16; TEMP 36.3; O2SAT 98
[2025-09-12 23:19] VITALS: BP 135/80; PULSE 70; RESP 16; TEMP 36.3; O2SAT 98
== END 2025-09-12 23:20 | disposition home or self-care (01) ==
PROVIDERS: Physician Assistant; Physician Assistant Medical; Emergency Provider Emergency Medicine
DX: R07.89 Other chest pain (principal); F41.9 Anxiety disorder, unspecified; R20.2 Paresthesia of skin; R51.9 Headache, unspecified; Z79.899 Other long term (current) drug therapy; Z51.81 Encounter for therapeutic drug level monitoring
CPT/HCPCS: 36415; 80053; 80307; 83690; 83735; 84484; 85025; 93005; 99283; 99284

== ENCOUNTER → 2025-09-12 17:47 | Outpatient (BNV) | payer SELFPAY | PROVIDERS: Emergency Provider Emergency Medicine; Visit Provider Internal Medicine Cardiovascular Disease | DX: R07.89 Other chest pain (principal) | CPT/HCPCS: 93010 ==

== ENCOUNTER 2025-10-29 07:57 | Outpatient (AMB) | payer OTHER, SELFPAY ==
--- OUTSIDE RECORDS SUMMARY | 2025-10-29 08:02 | XMS_ITS | Clinical Summary ---
Author Organization [facility] Address [address] [place] [address] Care Team Providers Care Post Adoption Coordinator Name Role Phone Pcp, No Primary Care Provider Unavailabl e Allergies No known active allergies Medications No known medications Active Problems No known active problems Encounters Date Type Department Care Team Description 09/10/2025 4:05 PM EDT Office Visit [facility] [address] [place] [address] Jani Sepulveda MD Signs, Eden Osman APRN Chest tightness (Primary Dx); Panic attacks; Palpitations from Last 3 Months Social History Tobacco [...] series) 2012 Influenza Vaccine 06/29/2025 COVID-19 Vaccine (1 - 2023-2 5 season) 2025 HPV Vaccines [...] 4:36 PM EDT us Eden Osman Signs COMMUNICATIONS TECHNOLOGIST ECG ORDERABLES Final Resu lt from Last 3 Months Care Teams Post Adoption Coordinator Relationship Specialty Start Date End Date Pcp, No PCP - General General Medicine 09/10/25
--- NOTE | 2025-10-29 08:06 | MHC.PC.OV ---
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 Intake Note: New patient visit Can Pusher Required: No Allergies No Known Allergies Allergy (Verified 10/29/25 08:10) Tobacco use date assessed: 10/29/25 Dental Screening Dental Screen Date: 10/29/25 Did you have a dental visit in the last 12 months?: No Did you have a dental problem in the last 6 months where you did not have access to dental care?: No Was dental information given to patient?: Patient declined HPI HPI Comments History of Present Illness Details 29 year old male with a past medical history of anxiety presenting to [facility]/phsycial exam Eating better, recently lost 15 pounds with diet and exercise. Quit etoh. Had ER visit for anxiety back in August. Managing anxiety with running TD 2005. Declines today ROS CONSTITUTIONAL: Denies weight loss, fever and chills. HEENT: Denies changes in vision and hearing. RESPIRATORY: Denies SOB and cough. CV: Denies palpitations and CP GI: Denies abdominal pain, nausea, vomiting and diarrhea. : Denies dysuria and urinary frequency. MSK: Denies new myalgia and joint pain. SKIN: Denies rash and pruritus. NEUROLOGICAL: Denies headache PSYCHIATRIC: Denies recent changes in mood. PHYSICAL EXAM: GENERAL: Alert and oriented x 3. NAD EYES: EOMI. Anicteric. HENT: Moist mucous membranes. No scleral icterus. No cervical lymphadenopathy. LUNGS: Clear to auscultation bilaterally. CARDIOVASCULAR: Regular rate and rhythm. No murmur. No JVD. ABDOMEN: Soft, non-tender +bs EXTREMITIES: No edema. Non-tender. SKIN: No rashes or lesions. Warm. NEUROLOGIC: No focal neurological deficits. CN II-XII grossly intact PSYCHIATRIC: Cooperative. Appropriate mood and affect [facility] Surgical History (Updated 10/29/25 @ 08:30 by Traci Ruffin CMA) H/O wisdom tooth extraction Family History (Updated 10/29/25 @ 08:31 by Traci Ruffin CMA) Mother HTN (hypertension) Anxiety Sister Anxiety Other FH: mental illness Social History (Updated 10/29/25 @ 08:31 by Traci Ruffin [facility]) Housing: House Alcohol intake: current Alcohol intake frequency: 0-2 drinks per day Alcohol type: hard liquor Patient Tobacco Use Status: Former Tobacco user (quit 10 years ago) Cigarette Packs Per Day: 0.15 Years Smoked: 3 e-Cigarette/Vaping Use: Never Used Second Hand Smoke Exposure: No service: No Current occupational status: employed 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 1. Little interest or pleasure in doing things: not at all 2. Feeling down, depressed, or hopeless: not at all 3. Trouble falling or staying asleep, or sleeping too much: not at all 4. Feeling tired or having little energy: not at all 5. Poor appetite or overeating: not at all 6. Feeling bad about yourself - or that you are a failure or have let yourself or your family down: not at all 7. Trouble concentrating on things, such as reading the newspaper or watching television: not at all 8. Moving or speaking so slowly that other people could have noticed. Or the opposite - being so fidgety or restless that you have been moving around a lot more than usual: not at all 9. Thoughts that you would be better off or of hurting yourself in some way: not at all Total score: 0 Depression Screening Interpretation: Negative Depression Screening Done: Yes 50362 - PHQ-9 Billing: Yes Source: Developed by Drs. Tino Aguilar, Arlin Salcido, Balwinder Rose and colleagues, with an educational rocky from [employer]. Thrive Questionnaire Date Thrive assessed: 10/29/25 I am a: Patient What is your living situation today?: I have a steady place to live Within the past 12 months, did the food you bought not last and you didn't have the money to get more?: Never true Within the past 12 months, did you worry whether your food would run out before you got money to buy more?: Never true Do you have trouble paying for medicines?: No Do you have trouble getting transportation to medical appointments?: No Do you have trouble paying your heating and electricity bill?: No Do you have trouble taking care of your child, family member or friend?: No Do you have trouble with day-to-day activities such as bathing, preparing meals, shopping, managing finances, etc.?: No Are you currently unemployed and looking for a job?: No Are you interested in more education?: Yes Please select the resources that you would like help with: None Currently or been in a relationship where the following occur: No concerns reported THRIVE Score: 0 AUDIT C Alcohol Use Questionnaire (AUDIT-C) 1. How often do you have a drink containing alcohol?: Monthly or less 2. How many drinks containing alcohol do you have on a typical day when you are drinking?: 3 or 4 3. How often do you have six or more drinks on one occasion?: Less than monthly Total Score: 3 MAURA-7 AMB Questionnaire MAURA-7 Date MAURA - 7 assessed: 10/29/25 Feeling nervous, anxious, or on edge: 1 = Several days Not being able to stop or control worryin = Not at all Worrying too much about different things: 0 = Not at all Trouble relaxin = Several days Being so restless that it is hard to sit still: 0 = Not at all Becoming easily annoyed or irritable: 0 = Not at all Feeling afraid as if something awful might happen: 0 = Not at all Total MAURA-7 score (0-4 normal; 5-9 mild; 10-14 moderate; 15-21 severe): 2 Source: Developed by Drs. Tino Aguilar, Arlin Salcido, Balwinder Rose and colleagues, with an educational rocky from [employer]. MAURA-7 Assessment Billing MAURA-7 Assessment Tool: MAURA-7 Assessment 49817 Physical exam (Primary Care) Vital Signs: Last Vital Signs Temp 97.5 F 10/29/25 08:15 Pulse 78 10/29/25 08:15 Resp 12 10/29/25 08:15 BP 124/84 10/29/25 08:15 Pulse Ox 98 10/29/25 08:15 Oxygen Delivery Method Room Air 10/29/25 08:15 BMI result Body Mass Index 28.5 Tobacco/Smoking Status: Tobacco use Status Tobacco use date assessed 10/29/25 10/29/25 08:14 Patient Tobacco Use Status Former Tobacco user (quit 10 10/29/25 08:31 years ago) e-Cigarette/Vaping Use Never Used 10/29/25 08:31 PHQ-9: PHQ-9 Score PHQ-9: Total score 0 10/29/25 08:32 Depression Screening Interpretation: Negative Thrive Assessment: Date of Thrive Assessment Date Thrive assessed 10/29/25 10/29/25 08:32 Currently or been in a relationship where the following occur: No concerns reported Coding Level of Care Code Est Pt Level 4 (03334) Diagnoses Physical exam Z00.00 History of anxiety Z86.59 History of palpitations Z87.898 Additional Codes MAURA-7 Assessment Billing - MAURA-7 Assessment Tool: MAURA-7 Assessment 97421 ([id number]) PHQ-9 - 20614 - PHQ-9 Billing: Yes ([id number]) Assessment & Plan Assessment & Plan (1) Physical exam: Code(s): Z00.00 - Encounter for general adult medical examination without abnormal findings Category: Medical (2) History of anxiety: Code(s): Z86.59 - Personal history of other mental and behavioral disorders Category: Medical (3) History of palpitations: Code(s): Z87.898 - Personal history of other specified conditions Category: Medical Plan 29 year old male establish care/cpe Past medical, surgical social reviewed Preventive measures for age discussed Anxiety stable off medications Orders: Orders Lipid Panel 10/29/25 Z13.220 - Encounter for screening for lipoid disorders, Z86.59 - Personal history of other mental and behavioral disorders, Z87.898 - Personal history of other specified conditions Testosterone, Free/Total 10/29/25 Z13.220 - Encounter for screening for lipoid disorders, Z86.59 - Personal history of other mental and behavioral disorders, Z87.898 - Personal history of other specified conditions TSH reflex Free T4 10/29/25 Z13.220 - Encounter for screening for lipoid disorders, Z86.59 - Personal history of other mental and behavioral disorders, Z87.898 - Personal history of other specified conditions Referrals Urology Referral Z30.09 - Encounter for other general counseling and advice on contraception Medications: Discontinued chlordiazepoxide HCl Discontinued Reason: Patient no longer taking 50 mg (2 x 25 mg) PO BID 3 days 12 caps 0RF
[2025-10-29 08:15] VITALS: BP 124/84; PULSE 78; RESP 12; TEMP 36.4; O2SAT 98; BMI 28.5
== END 2025-10-29 08:45 | disposition home or self-care (01) ==
LOC: HO.HMCFM 07:57
PROVIDERS: Visit Provider Internal Medicine
DX: Z00.00 Encounter for general adult medical examination without abnormal findings (principal); Z86.59 Personal history of other mental and behavioral disorders; Z87.898 Personal history of other specified conditions

== ENCOUNTER → 2025-10-29 07:57 | Outpatient (BNVA) | payer OTHER, SELFPAY | PROVIDERS: Visit Provider Internal Medicine | DX: Z00.00 Encounter for general adult medical examination without abnormal findings (principal); Z86.59 Personal history of other mental and behavioral disorders; Z87.898 Personal history of other specified conditions; Z13.31 Encounter for screening for depression; Z13.39 Encounter for screening examination for other mental health and behavioral disorders | CPT/HCPCS: 96127 ==